=== PATIENT | female | born 1975 | race Caucasian/White ===

== ENCOUNTER 2025-08-29 07:15 | Day surgery (SDC) | payer OTHER ==
[~2025-08-29] VITALS: Ht 157.5 cm; Wt 83.0 kg
[~2025-08-29 07:15] MED LIST: IBLOOD GLUCOSE TEST STRIP 1 EA TEST VI PRN; LACTATED RINGER'S 1,000 ML IV SCH; LEXAPRO10 MG PO; LIDOCAINE HCL 1% 5 ML SDV INJ ONE; NP THYROID60 MG PO; PROGESTERONE200 MG PO; WEGOVY0.5 MG/0.5 SUB-Q
[2025-08-29 07:22] VITALS: BP 118/68
[2025-08-29] MEDS ORDERED: MIRALAX17 GM PO (07:25)
[2025-08-29] MEDS ORDERED: LIDOCAINE HCL 2% 5 ML SDV ONE (07:59)
[2025-08-29] MEDS ORDERED: GLUCAGON,HUMAN RECOMBINANT 1 MG/ML VIAL ONE (09:03)
--- NOTE | 2025-08-29 09:33 | NUR ---
08/29/25 0933 Florecita Luevano 0927: PT ARRIVES TO PACU NON AROUSAL. REPORT RECEIVED FROM [employer] REPORT SERVICE AND POST ACUTE CARE REGISTERED NURSE.
[2025-08-29 09:54] VITALS: BP 117/71
== END 2025-08-29 10:01 | disposition home or self-care (01) ==
LOC: DS 07:15
PROVIDERS: ATTEND Surgery
PROC: 0DJD8ZZ Inspection of Lower Intestinal Tract, Via Natural or Artificial Opening Endoscopic (ICD-10-PCS; principal; 2025-08-29 08:40)
DX: Z12.11 Encounter for screening for malignant neoplasm of colon (principal); Z80.0 Family history of malignant neoplasm of digestive organs; Z79.890 Hormone replacement therapy; Z79.899 Other long term (current) drug therapy
CPT/HCPCS: 00812; J1610; J2003; J2704; J7121